=== PATIENT | male | born 1975 | race Caucasian/White ===

== ENCOUNTER 2020-03-14 14:38 | Observation (INO) | payer SELFPAY ==
[~2020-03-14] VITALS: Ht 177.8 cm; Wt 82.1 kg
[~2020-03-14 14:38] MED LIST: ALDACTONE25 MG PO; CLEOCIN HCL300 MG PO; COREG3.125 MG PO; FORTAMET1000 MG PO; GLIPIZIDE ER10 MG PO; HUMULIN 70100 UNIT/1 SQ; K DUR10 MEQ PO; LASIX40 MG PO; LISINOPRIL5 MG PO; MIRALAX17 GM PO; NORCO 5-325 TA1 EACH PO; TESSALON PERLE100 MG PO; THIAMINE PO; XANAX0.5 MG PO; XANAX1 MG PO
--- NOTE | 2020-03-14 14:48 | NUR ---
BILATERAL BLOOD PRESSURES: LEFT 151/100 RIGHT 157/102
[2020-03-14] MEDS ORDERED: ASPIRIN 81 MG CHEW TAB PO ONE (15:15)
--- OUTSIDE RECORDS SUMMARY | 2020-03-14 15:16 | XMS REPORT | Clinical Summary ---
Author Author [facility] ict Organization [facility] ict Address Unknown Phone Unavailable Care Team Providers Care Exhibitions Curator Name Role Phone PCP Unavailable Allergies Comments Active Allergy Reactions Severity Noted Date Lisinopril Cough 05/18/2013 Medications End Date Status Medication Sig Dispensed Refills Start Date Active citalopram (CELEXA) 20 mg Take 1 tablet 90 tablet 3 tabletIndications: by mouth 3 Depressive disorder, not daily. elsewhere classified Active blood glucose Check twice 1 Kit 3 meterIndications: daily. 9 Diabetic ketoacidosis without coma associated with type 2 diabetes mellitus Active blood glucose test Check twice 50 Each 3 stripsIndications: daily. 9 Diabetic ketoacidosis without coma associated with type 2 diabetes mellitus Active lancets 28 by 100 Each 3 gaugeIndications: MISCELLANEOUS 9 Diabetic ketoacidosis route 2 times without coma associated daily Check with type 2 diabetes twice daily. mellitus Active INSULIN SYRINGE 0.5mL Use to inject 1 Box 3 30GX5/16" (MONOJECT medication 2 9 ULTRACOMFORT INSULIN SYR times daily. 0.5ML 30GX5/16") Use a new syringe-needleIndications syringe each : Diabetic ketoacidosis time. without coma associated with type 2 diabetes mellitus Active atorvastatin (LIPITOR) 20 Take 1 tablet 30 tablet 2 mg tabletIndications: by mouth at 9 Type 2 diabetes mellitus bedtime with ketoacidosis without nightly. coma, with long-term current use of insulin, Coronary artery disease involving [place] coronary artery of [place] heart without angina pectoris Active losartan (COZAAR) 25 mg Take 1 tablet 180 tablet 3 tabletIndications: CHF by mouth 9 (congestive heart daily. failure) Active insulin NPH 100 unit/mL Inject 15 10 mL 3 injectionIndications: Units under 9 Type 2 diabetes mellitus the skin 2 with ketoacidosis without times daily coma, with long-term (before current use of insulin meals). Active insulin REGULAR 100 Inject 10 10 mL 3 unit/mL Units under 9 injectionIndications: the skin 3 Type 2 diabetes mellitus times daily with ketoacidosis without (before coma, with long-term meals). current use of insulin Active Problems Problem Noted Date Poorly controlled diabetes mellitus 07/14/2018 Chronic systolic heart failure 07/14/2018 Coronary artery disease involving [place] coronary art diana of [place] heart 07/14/2018 without angina pectoris Severe mitral regurgitation 04/27/2013 Overview: Functional MR SOB (shortness of breath) 04/26/2013 Hypotension 04/26/2013 CHF (congestive heart failure) 04/26/2013 DM (diabetes mellitus) 04/26/2013 Immunizations Name Administration Dates Next Due Influenza Vaccine 05/03/2013, 04/27/2013 (Def erred: Patient Refused) PPV 23 Pneumococcal 05/03/2013 Polysaccaride Pneumoccoccal 04/27/2013 (Deferred: Patie nt Refused) Tdap Tetanus, diphtheria, 06/21/2013 acellular pertussis Vaccine Social History Date Tobacco Use Types Packs/Day Years Used Quit: 03/13/2013 Former Smoker Cigarettes 1 25 Smokeless Tobacco: Never Used Comments: already quit Drinks/Week oz/Week Comments Alcohol Use No Sex Assigned at Date Recorded Not on file Industry Job Start Date Occupation Not on file Not on file Not on file Travel End Travel History Travel Start No recent travel history available. Last Filed Vital Signs Not on file Plan of Treatment Health Maintenance Due Date Last Done Comments DM Foot Exam (Yearly) 05/18/2014 05/18/2013 DM Retinal Exam (Yearly) 06/09/2014 06/09/2013, 06/09/2013 CORONARY ARTERY DISEASE 02/12/2020 02/11/2019, AGE 18 AND UP 07/15/2018, 07/17/2013, Additional history exists DM HGBA1C (Yearly) 02/12/2020 02/11/2019, 07/14/2018, 10/30/2013, Additional history exists IMM Influenza Seasonal 03/14/2020 05/03/2013 Oct to August (>/= 19 yrs) Results Not on fileafter 03/14/2019 Insurance Type Payer Benefit Subscriber ID Effective Phone Address Plan / Dates Group MEDICARE MEDICARE xxxxxxxxxxx 2015-P [phone] [address] resent [id number] [place] [address] [facility] SELF-PAY SELF-PAY xxxxxxxxx 2018- [phone] [address] [place] [address] Advance Directives Date Inactivated Comments Code Status Date Activated 02/12/2019 6:16 PM Full Code 02/11/2019 2:12 PM 07/15/2018 9:01 PM Full Code 07/15/2018 4:43 PM 07/25/2013 5:43 PM Full Code 07/24/2013 9:29 AM 05/04/2013 1:33 PM Full Code 05/01/2013 10:33 AM 05/01/2013 10:33 AM Full Code 04/26/2013 7:59 PM
--- OUTSIDE RECORDS SUMMARY | 2020-03-14 15:17 | XMS REPORT | Continuity of Care Document ---
Author Author [facility] Organization [facility] Address [address] [place] [id number] Phone Unavailable Care Team Providers Care Senior Accounts Payable Clerk Name Role Phone Unavailable Unavailable Problems Condition Name Condition Details Condition Category Status Onset Date Resolution Date Last Treatment Date Treating Clinician Comments Source Poorly controlled diabetes mellitus Poorly controlled diabetes m ellitus Disease Active 2018-07-14 00:00:00 [employer] Chronic systolic heart failure Chronic systolic heart failure Disea se Active 2018-07-14 00:00:00 [facility] Coronary artery disease involving [place] coronary artery of [place] heart without angina pectoris Coronary artery disease involving [place] coronary artery of [place] heart without angina pectoris Disease Active 2018-07-14 00:00:00 [facility] Severe mitral regurgitation Severe mitral regurgitation Disease Active 2013-04-27 00:00:00 Overview: Functional MR [facility] SOB (shortness of breath) SOB (shortness of breath) Disease Ac tive 2013-04-26 00:00:00 [facility] Hypotension Hypotension Disease Active 2013-04-26 00:00:00 [facility] CHF (congestive heart failure) CHF (congestive heart failure) Disea se Active 2013-04-26 00:00:00 [facility] DM (diabetes mellitus) DM (diabetes mellitus) Disease Active 2013-04-26 00:00:00 [facility] Allergies, Adverse Reactions, Alerts Allergy Name Allergy Type Status Severity Reaction(s) Onset Date Inacti ve Date Treating Clinician Comments Source Lisinopril Propensity to adverse reactions to drug Active Cough 2013-05-18 00:00:00 [facility] Social History Social Habit Start Date Stop Date Quantity Comments Source Sex Assigned At [facility] Cigarettes smoked current (pack per day) - Reported 00:00:00 2019-02-12 00:00:00 [facility] Cigarette pack-years 2019-02-12 00:00:00 2019-02-12 00:00:00 [facility] Alcohol intake 2019-02-12 00:00:00 2019-02-12 00:00:00 Current non-drinker of alcohol (finding) [facility] Tobacco Comment 2013-05-18 00:00:00 2013-05-18 00:00:00 already quit [facility] History of tobacco use 2013-03-13 00:00:00 Current smoker [facility] Smoking Status Start Date Stop Date Source Former smoker 2019-02-12 00:00:00 2019-02-12 00:00:00 [facility] ealt Medications Ordered Medication Name Filled Medication Name Start Date Stop Da te Current Medication? Ordering Clinician Indication Dosage Frequency Signature (SIG) Comments Components Source atorvastatin (LIPITOR) 20 mg tablet 2019-02-12 00:00:00 Yes Coronary artery disease involving [place] coronary artery of [place] heart without angina pectoris 20mg Take 1 tablet by mouth at bedtime nightly. [facility] losartan (COZAAR) 25 mg tablet 2019-02-12 00:00:00 Yes CHF (congestive heart failure) 25mg QD Take 1 tablet by mouth daily. [facility] insulin NPH 100 unit/mL injection 2019-02-12 00:00:00 Yes Type 2 diabetes mellitus with ketoacidosis without coma, with long-term current use of insulin 15U Q.5D Inject 15 Units under the skin 2 times daily (before m eals). [facility] insulin REGULAR 100 unit/mL injection 2019-02-12 00:00:00 Yes Type 2 diabetes mellitus with ketoacidosis without coma, with long-term current use of insulin 10U Q.[id number] Inject 10 Units u nder the skin 3 times daily (before meals). [facility] blood glucose meter 2018-07-15 00:00:00 Yes Diabetic ketoacidosis without coma associated with type 2 diabetes mellitus Check twice daily. [facility] blood glucose test strips 2018-07-15 00:00:00 Yes Diabetic ketoacidosis without coma associated with type 2 diabetes mellitus Check twice daily. [facility] lancets 28 gauge 2018-07-15 00:00:00 Yes Diabetic ketoacidosis without coma associated with type 2 diabetes mellitus Q.5D by MISCELLANEOUS route 2 times daily Check twice daily. [facility] INSULIN SYRINGE 0.5mL 30GX5/16" (MONOJEC T ULTRACOMFORT INSULIN SYR 0.5ML 30GX5/16") syringe-needle 2018-07-15 00:00:00 Yes Diabetic ketoacidosis without coma associated with type 2 diabetes mellitus Q.5D Use to inject medication 2 times daily. Use a new syringe each time. [facility] citalopram (CELEXA) 20 mg tablet 2013-05-18 00:00:00 Yes Depressive disorder, not elsewhere classified 20mg QD Take 1 tablet by mouth daily. [facility] Immunizations Ordered Immunization Name Filled Immunization Name Date Status Comments Source Tdap Tetanus, diphtheria, acellular pertussis Vaccine 2013-06-21 00:00:00 Completed [facility] PPV 23 Pneumococcal Polysaccaride 2013-05-03 00:00:00 Comp leted [facility] Influenza Vaccine 2013-05-03 00:00:00 Completed [facility] Procedures This patient has no known procedures. Plan of Care Planned Activity Planned Date Details Comments Source Future Scheduled Test 2020-03-14 00:00:00 IMM Influenza Seas onal Mar to August (>/= 19 yrs) [code = IMM Influenza Seasonal Mar to August (>/= 19 yrs)] [facility] Scheduled Test 2020-02-12 00:00:00 CORONARY ARTERY DI SEASE AGE 18 AND UP [code = CORONARY ARTERY DISEASE AGE 18 AND UP] [facility] Scheduled Test 2020-02-12 00:00:00 Hemoglobin A1c felix surement (procedure) [code = 11966224] [facility] Scheduled Test 2014-06-09 00:00:00 DM Retinal Exam (Y early) [code = DM Retinal Exam (Yearly)] [facility] Scheduled Test 2014-05-18 00:00:00 DM Foot Exam (Year ly) [code = DM Foot Exam (Yearly)] [facility] Encounters Start Date/Time End Date/Time Encounter Type Admission Type [facility] Care Department Encounter ID Source 2019-02-11 16:29:46 Inpatient [facility] [id number] [facility] 2019-02-11 00:00:00 Inpatient [facility] [id number] [facility] 2019-02-11 00:00:00 Inpatient [facility] [id number] [facility] 2018-07-15 14:55:23 Inpatient [facility] [id number] [facility] 2018-07-14 10:29:17 Inpatient [facility] [id number] [facility] 2019-03-07 00:00:2019-03-07 00:00:00 Outpatient [facility] [id number] [facility] 2019-02-11 08:16:46 2019-02-11 08:16:46 Inpatient [facility] [id number] [facility] 2018-08-01 00:00:00 2018-08-01 00:00:00 Outpatient [facility] [id number] [facility] 2018-07-14 08:31:12 2018-07-14 08:31:12 Inpatient [facility] [id number] [facility] Results Test Description Test Time Test Comments Results Result Comments Source XR Abdomen KUB 1 View 2018-01-17 14:26:27 Patien t: WOODROW GRANADOS Date/Time01/17/2018 14:20 CDTReason for ExamAbdominal painReportXR Abdomen KUB 1 ViewCLINICAL INFORMATION: Abdominal painCOMPARISONS: None available.FINDINGS:A single AP view of the abdomen was submitted. A nonspecific bowel gas pattern is noted. The small bowel loops are relatively airless. There is a moderate amount of stool in the left hemicolon and rectum. The bones are unremarkable.IMPRESSION:No acute abdominal finding. Moderate stool burden.Location: R16 Final Dictated by: MD Harman Adam FDictated DT/TM: 01/17/2018 2:25 pmSigned by: MD Harman Adam FSigned (Electronic Signature): 01/17/2018 2:26 pm XR Chest 1 View Frontal 2018-01-17 13:03:12 Corrie ent: WOODROW GRANADOS Date/Time01/17/2018 12:59 CDTReason for ExamCHF (Congestive Heart Failure), knownReportLocation code: [id number]: AP VIEW CHEST X-RAYHISTORY: CHF (Congestive Heart Failure), knownCOMPARISON: NoneCOMMENT: AP view provided. No acute infiltrate or effusion is seen. Cardiomediastinal silhouette is within normal limits. No acute bony abnormalities.IMPRESSION:No radiographic evidence for acute disease. Final Dictated by: MD Reyes Eniola FDictated DT/TM: 01/17/2018 1:02 pmSigned by: MD Reyes Eniola FSigned (Electronic Signature): 01/17/2018 1:03 pm
[2020-03-14 15:19] LABS: BASOPHILS % 0.6 % (0.0-1.0); EOSINOPHILS # (AUTO) 0.4 (0.0-0.4); EOSINOPHILS % 5.6 % (0.0-6.0); HEMATOCRIT 44.2 % (38.2-49.6); HEMOGLOBIN 15.4 g/dL (14.0-18.0); LYMPHOCYTES % 29.5 % (18.0-39.1); MEAN CORPUSCULAR HEMOGLOBIN 31.6 pg (28-32); MEAN CORPUSCULAR HGB CONC 34.8 g/dL (31-35); MEAN CORPUSCULAR VOLUME 90.6 fL (81-99); MONOCYTES # (AUTO) 0.4 (0.2-0.8); MONOCYTES % 5.2 % (4.4-11.3); NEUTROPHILS # (AUTO) 4.1 (2.1-6.9); NEUTROPHILS % 58.8 % (38.7-80.0); PLATELET COUNT 200 x10e3/uL (140-360); RED BLOOD COUNT 4.88 x10e6/uL (4.3-5.7); RED CELL DISTRIBUTION WIDTH 12.3 % (11.7-14.4)
[2020-03-14 15:30] LABS: INR 0.82; PROTHROMBIN TIME 11.7 seconds (11.9-14.5)
[2020-03-14 15:31] LABS: CLARITY,URINE CLEAR (CLEAR); COLOR,URINE YELLOW (YELLOW); PARTIAL THROMBOPLASTIN TIME 22.5 seconds (23.8-35.5)
[2020-03-14 15:32] LABS: KETONES,URINE 1+ (NEGATIVE); LEUKOCYTE ESTERASE ,URINE NEGATIVE (NEGATIVE); NITRITE,URINE NEGATIVE (NEGATIVE); PROTEIN,URINE DIPSTICK 2+ (NEGATIVE)
[2020-03-14 15:33] LABS: BILIRUBIN,URINE SMALL (NEGATIVE); URINE UROBILINOGEN 0.2 mg/dL (0.2 - 1)
--- NOTE | 2020-03-14 15:34 | Diagnostic Imaging Report ---
Examination: Single AP view of the chest. COMPARISON: None. INDICATION: Chest pain, left arm pain IMPRESSION: 1. Lines and Tubes: None 2. Lungs are grossly clear. No consolidation or effusion. 3. Cardiomediastinal silhouette is normal. Pulmonary vasculature is normal. 4. No acute bony abnormalities. Signed by: Dr. Mauri Baer M.D. on 03/14/2020 3:31 PM
[2020-03-14 15:37] LABS: ALANINE AMINOTRANSFERASE 17 IU/L (0-55); ALBUMIN 4.3 g/dL (3.5-5.0); ALBUMIN/GLOBULIN RATIO 1.3 (0.8-2.0); ALKALINE PHOSPHATASE 72 IU/L (40-150); BLOOD UREA NITROGEN 14 mg/dL (7-26); BUN/CREATININE RATIO 12 (6-25); CALCIUM 9.2 mg/dL (8.4-10.2); CARBON DIOXIDE 24 mmol/L (22-29); CHLORIDE 99 mmol/L (98-107); CREATINE KINASE 58 IU/L (30-200); CREATININE, SERUM 1.15 mg/dL (0.72-1.25); EST GLOMERULAR FILTRATION RATE > 60 ML/MIN (60-); GLUCOSE 257 mg/dL (74-118); SODIUM 136 mmol/L (136-145)
[2020-03-14 15:40] LABS: BACTERIA,URINE RARE /HPF; EPITHELIAL CELLS,URINE FEW /LPF; WBC,URINE (MAN) 21-50 /HPF (0-5)
[2020-03-14] MEDS ORDERED: METOPROLOL TARTRATE 25 MG TAB PO ONE (15:45)
[2020-03-14] MEDS ORDERED: MORPHINE SULFATE 2 MG/ML SYR 1ML IV PRN (17:00)
[2020-03-14] MEDS ORDERED: CEFTRIAXONE SOD 1 GM/NS 50 ML 50 ML IV SCH (17:00)
[2020-03-14] MEDS ORDERED: NITROGLYCERIN 0.4 MG SUBL SL PRN (17:00)
[2020-03-14] MEDS ORDERED: ONDANSETRON HCL INJ 2MG/ML 2ML 2 MG/ML VIAL IV PRN (17:00)
--- OUTSIDE RECORDS SUMMARY | 2020-03-14 17:11 | XMS REPORT | Continuity of Care Document ---
Author Author [facility] t Organization [facility] Address [address] [place] [address] Phone Unavailable Care Team Providers Care Patch Worker Name Role Phone Julio Céasr POE Attphys Unavailable Problems Condition Name Condition Details Condition Category Status Onset Date Resolution Date Last Treatment Date Treating Clinician Comments Source Poorly controlled diabetes mellitus Poorly controlled diabetes m ellitus Disease Active 2018-07-14 00:00:00 [facility] Chronic systolic heart failure Chronic systolic heart failure Disea se Active 2018-07-14 00:00:00 [facility] Coronary artery disease involving [place] coronary artery of [place] heart without angina pectoris Coronary artery disease involving [place] coronary artery of [place] heart without angina pectoris Disease Active 2018-07-14 00:00:00 [facility] Severe mitral regurgitation Severe mitral regurgitation Disease Active 2013-04-27 00:00:00 Overview: Functional MR [facility] SOB (shortness of breath) SOB (shortness of breath) Disease Ac tive 2013-04-26 00:00:00 [facility] Hypotension Hypotension Disease Active 2013-04-26 00:00:00 [facility] CHF (congestive heart failure) CHF (congestive heart failure) Disea se Active 2013-04-26 00:00:00 [facility] DM (diabetes mellitus) DM (diabetes mellitus) Disease Active 2013-04-26 00:00:00 [facility] Allergies, Adverse Reactions, Alerts Allergy Name Allergy Type Status Severity Reaction(s) Onset Date Inacti ve Date Treating Clinician Comments Source Lisinopril Propensity to adverse reactions to drug Active Cough 2013-05-18 00:00:00 [facility] Social History Social Habit Start Date Stop Date Quantity Comments Source Sex Assigned At [facility] Cigarettes smoked current (pack per day) - Reported 00:00:00 2019-02-12 00:00:00 [facility] Cigarette pack-years 2019-02-12 00:00:00 2019-02-12 00:00:00 [facility] Alcohol intake 2019-02-12 00:00:00 2019-02-12 00:00:00 Current non-drinker of alcohol (finding) [facility] Tobacco Comment 2013-05-18 00:00:00 2013-05-18 00:00:00 already quit [facility] History of tobacco use 2013-03-13 00:00:00 Current smoker [facility] Smoking Status Start Date Stop Date Source Former smoker 2019-02-12 00:00:00 2019-02-12 00:00:00 [facility] ealt Medications Ordered Medication Name Filled Medication Name Start Date Stop Da te Current Medication? Ordering Clinician Indication Dosage Frequency Signature (SIG) Comments Components Source atorvastatin (LIPITOR) 20 mg tablet 2019-02-12 00:00:00 Yes Coronary artery disease involving [place] coronary artery of [place] heart without angina pectoris 20mg Take 1 tablet by mouth at bedtime nightly. [facility] losartan (COZAAR) 25 mg tablet 2019-02-12 00:00:00 Yes CHF (congestive heart failure) 25mg QD Take 1 tablet by mouth daily. [facility] insulin NPH 100 unit/mL injection 2019-02-12 00:00:00 Yes Type 2 diabetes mellitus with ketoacidosis without coma, with long-term current use of insulin 15U Q.5D Inject 15 Units under the skin 2 times daily (before m eals). [facility] insulin REGULAR 100 unit/mL injection 2019-02-12 00:00:00 Yes Type 2 diabetes mellitus with ketoacidosis without coma, with long-term current use of insulin 10U Q.[id number] Inject 10 Units u nder the skin 3 times daily (before meals). [facility] blood glucose meter 2018-07-15 00:00:00 Yes Diabetic ketoacidosis without coma associated with type 2 diabetes mellitus Check twice daily. [facility] blood glucose test strips 2018-07-15 00:00:00 Yes Diabetic ketoacidosis without coma associated with type 2 diabetes mellitus Check twice daily. [facility] lancets 28 gauge 2018-07-15 00:00:00 Yes Diabetic ketoacidosis without coma associated with type 2 diabetes mellitus Q.5D by MISCELLANEOUS route 2 times daily Check twice daily. [facility] INSULIN SYRINGE 0.5mL 30GX5/16" (MONOJEC T ULTRACOMFORT INSULIN SYR 0.5ML 30GX5/16") syringe-needle 2018-07-15 00:00:00 Yes Diabetic ketoacidosis without coma associated with type 2 diabetes mellitus Q.5D Use to inject medication 2 times daily. Use a new syringe each time. [facility] citalopram (CELEXA) 20 mg tablet 2013-05-18 00:00:00 Yes Depressive disorder, not elsewhere classified 20mg QD Take 1 tablet by mouth daily. [facility] Immunizations Ordered Immunization Name Filled Immunization Name Date Status Comments Source Tdap Tetanus, diphtheria, acellular pertussis Vaccine 2013-06-21 00:00:00 Completed [facility] PPV 23 Pneumococcal Polysaccaride 2013-05-03 00:00:00 Comp leted [facility] Influenza Vaccine 2013-05-03 00:00:00 Completed [facility] Procedures This patient has no known procedures. Plan of Care Planned Activity Planned Date Details Comments Source Future Scheduled Test 2020-03-14 00:00:00 IMM Influenza Seas onal Mar to August (>/= 19 yrs) [code = IMM Influenza Seasonal Mar to August (>/= 19 yrs)] [facility] Scheduled Test 2020-02-12 00:00:00 CORONARY ARTERY DI SEASE AGE 18 AND UP [code = CORONARY ARTERY DISEASE AGE 18 AND UP] [facility] Scheduled Test 2020-02-12 00:00:00 Hemoglobin A1c felix surement (procedure) [code = 46034018] [facility] Scheduled Test 2014-06-09 00:00:00 DM Retinal Exam (Y early) [code = DM Retinal Exam (Yearly)] [facility] Scheduled Test 2014-05-18 00:00:00 DM Foot Exam (Year ly) [code = DM Foot Exam (Yearly)] [facility] Encounters Start Date/Time End Date/Time Encounter Type Admission Type Att[facility] Care Department Encounter ID Source 2019-02-11 16:29:46 Inpatient [facility] [id number] [facility] 2019-02-11 00:00:00 Inpatient [facility] [id number] [facility] 2019-02-11 00:00:00 Inpatient [facility] [id number] [facility] 2018-07-15 14:55:23 Inpatient [facility] [id number] [facility] 2018-07-14 10:29:17 Inpatient [facility] [id number] [facility] 2019-03-07 00:00:00 2019-03-07 00:00:00 Outpatient [facility] [id number] [facility] 2019-02-11 08:16:46 2019-02-11 08:16:46 Inpatient [facility] [id number] [facility] 2018-08-01 00:00:00 2018-08-01 00:00:00 Outpatient [facility] [id number] [facility] 2018-07-14 08:31:12 2018-07-14 08:31:12 Inpatient [facility] [id number] [facility] Results Test Description Test Time Test Comments Results Result Comments Source CHEST SINGLE (PORTABLE) 2020-03-14 15:31:00 [place] [address] Patient Name: WOODROW GRANADOS MR #: [id number] : 1975 Age/Sex: 45/M Req #: [id number] Adm Physician: Ordered by: MAIRA POE MD Report #: [id number] Location: ER Room/Bed: Procedure: [id number] DX/CHEST SINGLE (PORTABLE) Exam Date: 03/14/20 Exam Time: 1455 REPORT STATUS: Signed Examination: Single AP view of the chest. COMPARISON: None. INDICATION: Chest pain, left arm pain IMPRESSION: 1. Lines and Tubes: None 2. Lungs are grossly clear. No consolidation or effusion. 3. Cardiomediastinal silhouette is normal. Pulmonary vasculature is normal. 4. No acute bony abnormalities. Signed by: Dr. Dereje Baer M.D. on 03/14/2020 3:31 PM Dictated By: DEREJE BAER MD 1531 Transcribed By: SUGAR on 03/14/20 1531 COPY TO: MAIRA POE MD XR Abdomen KUB 1 View 2018-01-17 14:26:27 [...] for ExamCHF (Congestive Heart Failure), knownReportLocation code: [id number]: AP VIEW CHEST X-RAYHISTORY: CHF (Congestive Heart Failure), knownCOMPARISON: NoneCOMMENT: AP view provided. No acute infiltrate or effusion is seen. Cardiomediastinal silhouette is within normal limits. No acute bony abnormalities.IMPRESSION:No radiographic evidence for acute disease. Final Dictated by: MD Reyes Eniola FDictated DT/TM: 01/17/2018 1:02 pmSigned by: MD Reyes Eniola FSigned (Electronic Signature): 01/17/2018 1:03 pm
--- OUTSIDE RECORDS SUMMARY | 2020-03-14 17:11 | XMS REPORT | Clinical Summary ---
Author Author [facility] ict Organization [facility] ict Address Unknown Phone Unavailable Care Team Providers Care Brass Pickler Name Role Phone PCP Unavailable Allergies Comments [...] use of insulin, Coronary artery disease involving [place] coronary artery of [place] heart without angina pectoris Active losartan (COZAAR) [...] heart failure 07/14/2018 Coronary artery disease involving [place] coronary art diana of [place] heart 07/14/2018 without angina pectoris Severe mitral [...] / Dates Group MEDICARE MEDICARE xxxxxxxxxxx 2015-P [phone] [place] [id number] [place] [address] [facility] SELF-PAY SELF-PAY xxxxxxxxx 2018- [phone] [address] [place] [address] Advance Directives Date Inactivated Comments Code Status Date Activated 02/12/2019 6:16 PM Full Code 02/11/2019 2:12 PM 07/15/2018 9:01 PM Full Code 07/15/2018 4:43 PM 07/25/2013 5:43 PM Full Code 07/24/2013 9:29 AM 05/04/2013 1:33 PM Full Code 05/01/2013 10:33 AM 05/01/2013 10:33 AM Full Code 04/26/2013 7:59 PM
--- NOTE | 2020-03-14 18:48 | Emergency Department Note ---
History of Present Illnes History of Present Illness Chief Complaint: Chest Pain History of Present Illness This is a 45 year old male PATIENT IN FROM HOME WITH COMPLAINTS OF HIGH BLOOD PRESSURE, LEFT ARM PAIN AND CHEST PAIN X 2 HOURS. PATIENT RATES PAIN 3/10 AT THIS TIME, AND STATES THAT IT COMES AND GOES. PATIENT ALERT AND ORIENTED, RESP EVEN AND NONLABORED, APPEARS IN NO DISTRESS, AMBULATORY WITHOUT ASSISTANCE. + ASSOC SOB, DIAPHORESIS Historian: Patient Arrival Mode: Car Shipping Order Clerk Required: No Onset (how long ago): hour(s) Location: SS CHEST Quality: PRESSURE Radiation: Reports extremity (LEFT ARM) Severity: moderate Onset quality: gradual Timing of current episode: intermittent Progression: waxing and waning Chronicity: new Context: Denies recent illness Relieving factors: none Exacerbating factors: movement Associated symptoms: Reports chest pain, Reports diaphoresis, Reports shortness of breath Past Medical/Family History Physician Review I have reviewed the patient's past medical and family history. Any updates have been documented here. Past Medical History Recent Fever: No Clinical Suspicion of Infectio: No New/Unexplained Change in Ment: No Past Medical History: Diabetes, CHF, Hyperlipedemia Other Medical History: NOT ON ANY MEDS EXCEPT INSULIN Other Surgery: KNEE Social History Smoking Cessation: Current every day smoker Counseling Performed: Yes Alcohol Use: Social Any Illegal Drug Use: No TB Exposure/Symptoms: No Physically hurt or threatened: No Family History Family history of heart diseas: No Other Last Tetanus: UNKNOWN Any Pre-Existing Lines (PICC,: No Review of Systems Review of Systems Constitutional: Reports no symptoms EENTM: Reports no symptoms Cardiovascular: Reports as per HPI Respiratory: Reports no symptoms Gastrointestinal: Reports no symptoms Genitourinary: Reports no symptoms Musculoskeletal: Reports no symptoms Integumentary: Reports no symptoms Neurological: Reports no symptoms Psychological: Reports no symptoms Endocrine: Reports no symptoms Hematological/Lymphatic: Reports no symptoms Physical Exam Related Data Allergies: Coded Allergies: No Known Allergies (Unverified , 03/25/13) Triage Vital Signs Vital Signs Date Time Temp Pulse Resp B/P (MAP) Pulse Ox O2 Delivery O2 Flow Rate FiO2 03/14/20 14:44 97.9 110 18 157/102 100 Room Air Vital signs reviewed: Yes Physical Exam CONSTITUTIONAL Constitutional: Present well-developed, Present well-nourished HENT HENT: Present normocephalic, Present atraumatic, Present oropharynx clear/moist, Present nose normal HENT L/R: Present left ext ear normal, Present right ext ear normal EYES Eyes: Reports PERRL, Reports conjunctivae normal NECK Neck: Present ROM normal PULMONARY Pulmonary: Present effort normal, Present breath sounds normal CARDIOVASCULAR Cardiovascular: Present regular rhythm, Present heart sounds normal, Present capillary refill normal, Present normal rate GASTROINTESTINAL Abdominal: Present soft, Present nontender, Present bowel sounds normal GENITOURINARY Genitourinary: Present exam deferred SKIN Skin: Present warm, Present dry MUSCULOSKELETAL Musculoskeletal: Present ROM normal, Present edema (2+ LE EDEMA BILAT) NEUROLOGICAL Neurological: Present alert, Present oriented x 3, Present no gross motor or sensory deficits PSYCHOLOGICAL Psychological: Present mood/affect normal, Present judgement normal Results Laboratory Result Diagram: 03/14/20 1500 03/14/20 1500 Laboratory Laboratory Tests Test 03/14/20 15:00 White Blood Count 6.92 x10e3/uL (4.8-10.8) Red Blood Count 4.88 x10e6/uL (4.3-5.7) Hemoglobin 15.4 g/dL (14.0-18.0) Hematocrit 44.2 % (38.2-49.6) Mean Corpuscular Volume 90.6 fL (81-99) Mean Corpuscular Hemoglobin 31.6 pg (28-32) Mean Corpuscular Hemoglobin Concent 34.8 g/dL (31-35) Red Cell Distribution Width 12.3 % (11.7-14.4) Platelet Count 200 x10e3/uL (140-360) Neutrophils (%) (Auto) 58.8 % (38.7-80.0) Lymphocytes (%) (Auto) 29.5 % (18.0-39.1) Monocytes (%) (Auto) 5.2 % (4.4-11.3) Eosinophils (%) (Auto) 5.6 % (0.0-6.0) Basophils (%) (Auto) 0.6 % (0.0-1.0) Neutrophils # (Auto) 4.1 (2.1-6.9) Lymphocytes # (Auto) 2.0 (1.0-3.2) Monocytes # (Auto) 0.4 (0.2-0.8) Eosinophils # (Auto) 0.4 (0.0-0.4) Basophils # (Auto) 0.0 (0.0-0.1) Absolute Immature Granulocyte (auto 0.02 x10e3/uL (0-0.1) Prothrombin Time 11.7 seconds (11.9-14.5) Prothromb Time International Ratio 0.82 Activated Partial Thromboplast Time 22.5 seconds (23.8-35.5) Urine Color Yellow (YELLOW) Urine Clarity Clear (CLEAR) Urine pH 5.5 (5 - 7) Urine Specific [place] 1.025 (1.010-1.025) Urine Protein 2+ (NEGATIVE) Urine Glucose (UA) 2+ (NEGATIVE) Urine Ketones 1+ (NEGATIVE) Urine Blood Large (NEGATIVE) Urine Nitrite Negative (NEGATIVE) Urine Bilirubin Small (NEGATIVE) Urine Urobilinogen 0.2 mg/dL (0.2 - 1) Urine Leukocyte Esterase Negative (NEGATIVE) Urine RBC 11-20 /HPF (0-5) Urine WBC 21-50 /HPF (0-5) Urine Epithelial Cells Few /LPF (NONE) Urine Bacteria Rare /HPF (NONE) Sodium Level 136 mmol/L (136-145) Potassium Level 4.0 mmol/L (3.5-5.1) Chloride Level 99 mmol/L (98-107) Carbon Dioxide Level 24 mmol/L (22-29) Anion Gap 17.0 mmol/L (8-16) Blood Urea Nitrogen 14 mg/dL (7-26) Creatinine 1.15 mg/dL (0.72-1.25) Estimat Glomerular Filtration Rate > 60 ML/MIN (60-) BUN/Creatinine Ratio 12 (6-25) Glucose Level 257 mg/dL (74-118) Calcium Level 9.2 mg/dL (8.4-10.2) Total Bilirubin 0.6 mg/dL (0.2-1.2) Aspartate Amino Transf (AST/SGOT) 23 IU/L (5-34) Alanine Aminotransferase (ALT/SGPT) 17 IU/L (0-55) Alkaline Phosphatase 72 IU/L (40-150) Creatine Kinase 58 IU/L (30-200) Creatine Kinase MB 1.10 ng/mL (0-5.0) Troponin I 0.004 ng/mL (0-0.300) B-Type Natriuretic Peptide 157.5 pg/mL (0-100) Total Protein 7.5 g/dL (6.5-8.1) Albumin 4.3 g/dL (3.5-5.0) Globulin 3.2 g/dL (2.3-3.5) Albumin/Globulin Ratio 1.3 (0.8-2.0) Lab results reviewed: Yes Imaging Imaging results reviewed: Yes Procedures 12 Lead ECG Interpretation ECG Interpretation : ECG: ECG 1 Shipping Order Clerk: Interpreted by ED physician Date: Mar 14, 2020 Time: 14:48 Rhythm: sinus tachycardia Rate: tachycardia BPM: 107 QRS axis: normal ST segment flattening: V5 (1 MM), V6 T wave inversion: V5, V6 Clinical Impression: abnormal ECG Assessment & Plan Medical Decision Making MDM CBC, CHEM, CARDIACS, BNP, CXR, - EVAL FOR STEMI/NSTEMI, CHF, RENAL INSUFF, ELECTROLYTE ABNL Reassessment Reassessment ADMIT TO ON-CALL DR SU - MEHDI R/O Assessment & Plan Final Impression: (1) Chest pain Depart Disposition: ADMITTED Last Vital Signs Date Time Temp Pulse Resp B/P (MAP) Pulse Ox O2 Delivery O2 Flow Rate FiO2 03/14/20 18:22 82 18 133/87 99 Room Air 03/14/20 14:44 97.9 Home Meds Reported Medications Hum Insulin Nph/Reg Insulin Hm (HUMULIN 70-30 VIAL) 100 Unit/1 Ml Vial, 20 UNITS SQ HS 04/13/13 Hum Insulin Nph/Reg Insulin Hm (HUMULIN 70-30 VIAL) 100 Unit/1 Ml Vial, 25 UNIT SQ QAM 04/13/13 Discontinued Reported Medications Benzonatate (TESSALON PERLE) 100 Mg Capsule, 100 MG PO TID PRN 04/13/13 Hydrocodone Bit/Acetaminophen (NORCO 5-325 TABLET) 1 Each Tablet, 1 TAB PO Q6 PRN 04/13/13 Polyethylene Glycol 3350 (MIRALAX) 17 Gm Powd.pack, 17 G PO DAILY 04/13/13 Furosemide (LASIX) 40 Mg Tablet, 40 MG PO TID 04/13/13 Alprazolam (XANAX) 0.5 Mg Tablet, 0.5 MG PO Q4 PRN 04/13/13 Alprazolam* (XANAX*) 1 Mg Tablet, 1 MG PO 04/13/13 Clindamycin Hcl (CLEOCIN HCL) 300 Mg Capsule, 300 MG PO TID 04/13/13 Spironolactone (ALDACTONE) 25 Mg Tablet, 25 MG PO BID 04/13/13 Potassium Chloride* (K DUR*) 10 Meq Tabcr, 20 MEQ PO DAILY 04/13/13 Carvedilol (COREG) 3.125 Mg Tab, 3.125 MG PO BID 04/13/13 Lisinopril (LISINOPRIL) 5 Mg Tablet, 5 MG PO HS 04/13/13 [Thiamine B1] No Conflict Check, 50 MG PO DAILY 04/13/13 Glipizide (GLIPIZIDE ER) 10 Mg Tab.er.24, 10 MG PO BID 03/25/13 Metformin Hcl (FORTAMET) 1,000 Mg Tab.er.24, 1000 MG PO BID 03/25/13 Medications in the ED Aspirin 81 mg PRN ONCE PO Last administered on 03/14/20at 16:58; Admin Dose 81 MG; Start 03/14/20 at 15:15; Stop 03/14/20 at 15:16; Status DC Metoprolol Tartrate 25 mg ONCE ONCE PO Last administered on 03/14/20at 16:58; Admin Dose 25 MG; Start 03/14/20 at 15:45; Stop 03/14/20 at 15:49; Status DC MAIRA POE MD Mar 14, 2020 18:48
[2020-03-14 20:10] VITALS: BP 143/93
--- NOTE | 2020-03-14 20:17 | NUR ---
PT STATES THAT HE FEELS BETTER AND WAS NOT EXPECTING TO BE ADMITTED. HE WANTS TO GO HOME, BECAUSE HE HAS TO GO TO WORK TOMORROW. DR SU NOTIFIED AT THIS TIME, NO NEW ORDERS RECEIVED.
[2020-03-14] MEDS ORDERED: POLYETHYLENE GLYCOL 3350 17 GM PACK PO PRN (20:30)
[2020-03-14] MEDS ORDERED: ACETAMINOPHEN 325 MG TAB PO PRN (20:30)
[2020-03-14] MEDS ORDERED: TEMAZEPAM 7.5 MG CAP PO PRN (20:30)
[2020-03-14] MEDS ORDERED: HYDRALAZINE HCL 20 MG/ML VIAL IV PRN (20:30)
[2020-03-14] MEDS ORDERED: FAMOTIDINE 20 MG/2 ML VIAL IV SCH (21:00)
[2020-03-15] MEDS ORDERED: ASPIRIN 81 MG ENTERIC COATED PO SCH (09:00)
[2020-03-15] MEDS ORDERED: DOCUSATE SODIUM 100 MG CAP PO SCH (09:00)
== END 2020-03-14 20:30 | disposition left against medical advice (07) ==
LOC: ER 15:14 → ERHOLD 16:52
PROVIDERS: ADMIT Internal Medicine; ATTEND Internal Medicine
DX: R07.9 Chest pain, unspecified (principal); E11.9 Type 2 diabetes mellitus without complications; I50.9 Heart failure, unspecified; E78.5 Hyperlipidemia, unspecified; F17.210 Nicotine dependence, cigarettes, uncomplicated; Z11.59 Encounter for screening for other viral diseases; Z79.4 Long term (current) use of insulin
CPT/HCPCS: 36415; 71045; 80053; 81001; 82550; 82553; 83880; 84484; 85025; 85610; 85730; 93005; 99284; G0378; J0696; U0002

== ENCOUNTER 2022-10-28 10:35 | Emergency (ER) | payer OTHER ==
[~2022-10-28] VITALS: Ht 177.8 cm; Wt 77.6 kg
[~2022-10-28 10:35] MED LIST changes: -INSULIN REGULAR, HUMAN 100 UNIT/1 ML ONE; -LACTATED RINGER'S 1,000 ML ONE; -LIDOCAINE HCL 2% LOCAL INJ 5 ML SDV VIAL INJ ONE; -PHENYLEPHRINE HCL 1% 10 MG/ML VIAL ONE; -PROPOFOL IV EMULSION 10 MG/ML 20 ML VIAL ONE; -PROPOFOL IV EMULSION 10 MG/ML 50 ML VIAL IV ONE
[2022-10-28 10:45] VITALS: O2SAT 99
[2022-10-28] MEDS ORDERED: SODIUM CHLORIDE 0.9% 1000ML 1,000 ML IV STA (11:12)
[2022-10-28] MEDS ORDERED: SODIUM CHLORIDE 0.9% 1000ML 1,000 ML IV ONE (11:15)
[2022-10-28] MEDS ORDERED: INSULIN REGULAR, HUMAN 100 UNIT/1 ML IV ONE (11:15)
[2022-10-28 11:22] LABS: BASOPHILS % 0.6 % (0.0-1.0); EOSINOPHILS % 0.3 % (0.0-6.0); HEMATOCRIT 43.2 % (38.2-49.6); LYMPHOCYTES # (AUTO) 1.2 (1.0-3.2); LYMPHOCYTES % 19.1 % (18.0-39.1); MEAN CORPUSCULAR HEMOGLOBIN 31.6 pg (28-32); MEAN CORPUSCULAR HGB CONC 34.7 g/dL (31-35); MEAN CORPUSCULAR VOLUME 90.9 fL (81-99); MONOCYTES # (AUTO) 0.2 (0.2-0.8); MONOCYTES % 2.6 % (4.4-11.3); NEUTROPHILS % 77.1 % (38.7-80.0); PLATELET COUNT 176 x10e3/uL (140-360); RED BLOOD COUNT 4.75 x10e6/uL (4.3-5.7); RED CELL DISTRIBUTION WIDTH 11.6 % (11.7-14.4)
[2022-10-28 11:29] LABS: ABG PH 7.35 (7.35-7.45)
[2022-10-28 11:30] LABS: COLOR,URINE YELLOW (YELLOW)
[2022-10-28 11:30] LABS: ABG HCO3 20 mmol/L (22-26); ABG PCO2 36 mmHg (35-45); ABG PO2 95 mmHg (80-105); ABG TCO2 21
[2022-10-28 11:32] LABS: CLARITY,URINE CLEAR (CLEAR); KETONES,URINE >=160 (NEGATIVE); LEUKOCYTE ESTERASE ,URINE NEGATIVE (NEGATIVE); NITRITE,URINE NEGATIVE (NEGATIVE); PROTEIN,URINE DIPSTICK NEGATIVE (NEGATIVE); URINE UROBILINOGEN 0.2 mg/dL (0.2 - 1)
[2022-10-28 11:50] LABS: BACTERIA,URINE RARE /HPF; RBC,URINE 0-5 /HPF (0-5); WBC,URINE (MAN) 0-5 /HPF (0-5)
[2022-10-28 11:52] LABS: ALBUMIN 4.3 g/dL (3.5-5.0); ALBUMIN/GLOBULIN RATIO 1.2 (0.8-2.0); ANION GAP 16.5 mmol/L (8-16); CALCIUM 9.7 mg/dL (8.4-10.2); CREATININE, SERUM 1.58 mg/dL (0.72-1.25); MAGNESIUM 2.5 MG/DL (1.3-2.1); POTASSIUM 4.5 mmol/L (3.5-5.1)
== END 2022-10-28 14:33 | disposition home or self-care (01) ==
LOC: ER 10:47
DX: R19.7 Diarrhea, unspecified (principal); E71.32 Disorders of ketone metabolism; R94.31 Abnormal electrocardiogram [ECG] [EKG]; E86.0 Dehydration; E11.65 Type 2 diabetes mellitus with hyperglycemia
CPT/HCPCS: 36415; 36600; 71045; 80053; 81001; 82805; 82948; 83735; 84484; 85025; 87086; 93005; 99284; J7030

== ENCOUNTER → 2022-10-28 | Day surgery (SDC) | payer BC, MEDICARE, OTHER ==
[2022-10-22 08:27] LABS: BASOPHILS # (AUTO) 0.1 (0.0-0.1); BASOPHILS % 1.3 % (0.0-1.0); EOSINOPHILS # (AUTO) 0.7 (0.0-0.4); EOSINOPHILS % 10.2 % (0.0-6.0); HEMATOCRIT 40.9 % (38.2-49.6); HEMOGLOBIN 14.2 g/dL (14.0-18.0); LYMPHOCYTES # (AUTO) 3.1 (1.0-3.2); LYMPHOCYTES % 43.3 % (18.0-39.1); MEAN CORPUSCULAR HEMOGLOBIN 31.3 pg (28-32); MEAN CORPUSCULAR HGB CONC 34.7 g/dL (31-35); MEAN CORPUSCULAR VOLUME 90.1 fL (81-99); MONOCYTES # (AUTO) 0.5 (0.2-0.8); MONOCYTES % 7.4 % (4.4-11.3); NEUTROPHILS # (AUTO) 2.7 (2.1-6.9); NEUTROPHILS % 37.5 % (38.7-80.0); PLATELET COUNT 161 x10e3/uL (140-360); RED BLOOD COUNT 4.54 x10e6/uL (4.3-5.7); RED CELL DISTRIBUTION WIDTH 11.5 % (11.7-14.4)
[~2022-10-28] MED LIST changes: +ASPIRIN CHEW81 MG PO; +COZAAR25 MG PO; +INSULIN REGULAR, HUMAN 100 UNIT/1 ML ONE; +LACTATED RINGER'S 1,000 ML ONE; +LASIX20 MG PO; +LIDOCAINE HCL 2% LOCAL INJ 5 ML SDV VIAL INJ ONE; +LIPITOR20 MG PO; +NEURONTIN100 MG PO; +NOVOLIN N100 UNIT/1 SC; +NOVOLIN R100 UNIT/1 SC; +PHENYLEPHRINE HCL 1% 10 MG/ML VIAL ONE; +PROPOFOL IV EMULSION 10 MG/ML 20 ML VIAL ONE; +PROPOFOL IV EMULSION 10 MG/ML 50 ML VIAL IV ONE; +TRULICITY0.75 MG/0. SC
[2022-10-28 09:14] LABS: ANION GAP 21.3 mmol/L (8-16); CALCIUM 9.5 mg/dL (8.4-10.2); CREATININE, SERUM 1.62 mg/dL (0.72-1.25); POTASSIUM 4.3 mmol/L (3.5-5.1)
[2022-10-28 09:44] LABS: CLARITY,URINE CLEAR (CLEAR); COLOR,URINE YELLOW (YELLOW); KETONES,URINE >=160 (NEGATIVE); LEUKOCYTE ESTERASE ,URINE NEGATIVE (NEGATIVE); NITRITE,URINE NEGATIVE (NEGATIVE); PROTEIN,URINE DIPSTICK NEGATIVE (NEGATIVE); URINE UROBILINOGEN 0.2 mg/dL (0.2 - 1)
[2022-10-28 15:02] VITALS: TEMP 98.8
[2022-10-28 15:30] VITALS: BP 116/77; PULSE 84; RESP 16; O2SAT 99
== END | disposition home or self-care (01) ==
LOC: OR 09:13
PROVIDERS: ATTEND Internal Medicine Gastroenterology
DX: Z12.11 Encounter for screening for malignant neoplasm of colon (principal); K63.5 Polyp of colon; K58.9 Irritable bowel syndrome, unspecified; Z71.3 Dietary counseling and surveillance; I25.118 Atherosclerotic heart disease of native coronary artery with other forms of angina pectoris; E78.5 Hyperlipidemia, unspecified; I11.0 Hypertensive heart disease with heart failure; I50.9 Heart failure, unspecified; Z71.89 Other specified counseling; I25.5 Ischemic cardiomyopathy; E11.69 Type 2 diabetes mellitus with other specified complication; Z71.82 Exercise counseling; Z88.8 Allergy status to other drugs, medicaments and biological substances; Z01.812 Encounter for preprocedural laboratory examination; Z79.4 Long term (current) use of insulin; Z79.85 Long-term (current) use of injectable non-insulin antidiabetic drugs; Z79.82 Long term (current) use of aspirin; Z79.899 Other long term (current) drug therapy; Z68.27 Body mass index [BMI] 27.0-27.9, adult; Z95.5 Presence of coronary angioplasty implant and graft; Z87.891 Personal history of nicotine dependence
CPT/HCPCS: 36415 ×2; 45385; 80048; 81003; 82948; 85025; J2001; J2370; J2704 ×2; J7121; 45378

== ENCOUNTER 2024-06-04 03:00 | Inpatient (IN) | payer SELFPAY ==
[2024-06-04] VITALS (14 sets, daily range): BP systolic 125–144; BP diastolic 84–108; PULSE 92–102; RESP 16–23; TEMP 98.1–98.5; O2SAT 93–98
[~2024-06-04] VITALS: Ht 177.8 cm; Wt 90.7 kg
[2024-06-04] MEDS ORDERED: ACETAMINOPHEN 325 MG TAB PO STA (03:04)
[2024-06-04] MEDS ORDERED: SODIUM CHLORIDE 0.9% 1000ML 1,000 ML IV STA (03:04)
[2024-06-04 03:38] LABS: BASOPHILS # (AUTO) 0.1 (0.0-0.1); EOSINOPHILS # (AUTO) 0.3 (0.0-0.4); EOSINOPHILS % 4.1 % (0.0-6.0); HEMATOCRIT 41.1 % (38.2-49.6); HEMOGLOBIN 13.5 g/dL (14.0-18.0); LYMPHOCYTES # (AUTO) 3.4 (1.0-3.2); LYMPHOCYTES % 40.6 % (18.0-39.1); MEAN CORPUSCULAR HEMOGLOBIN 32.1 pg (28-32); MEAN CORPUSCULAR HGB CONC 32.8 g/dL (31-35); MEAN CORPUSCULAR VOLUME 97.9 fL (81-99); MONOCYTES # (AUTO) 0.7 (0.2-0.8); MONOCYTES % 8.5 % (4.4-11.3); NEUTROPHILS # (AUTO) 3.8 (2.1-6.9); NEUTROPHILS % 45.4 % (38.7-80.0); PLATELET COUNT 201 x10e3/uL (140-360); RED CELL DISTRIBUTION WIDTH 12.3 % (11.7-14.4); WHITE BLOOD COUNT 8.35 x10e3/uL (4.8-10.8)
[2024-06-04 03:53] LABS: ALBUMIN 3.5 g/dL (3.5-5.0); ALBUMIN/GLOBULIN RATIO 0.9 (0.8-2.0); ANION GAP 16.1 mmol/L (8-16); BILIRUBIN,TOTAL 0.8 mg/dL (0.2-1.2); CREATININE, SERUM 1.05 mg/dL (0.72-1.25); TOTAL PROTEIN 7.2 g/dL (6.5-8.1)
[2024-06-04 03:59] LABS: TROPONIN I 0.025 ng/mL (0-0.300)
[2024-06-04 04:00] LABS: POTASSIUM 3.1 mmol/L (3.5-5.1)
[2024-06-04 04:13] LABS: INFLUENZA A AG NEGATIVE (NEGATIVE)
[2024-06-04 04:14] LABS: CORONAVIRUS COVID-19 AG NEGATIVE (NEGATIVE); INFLUENZA B AG NEGATIVE (NEGATIVE)
[2024-06-04] MEDS ORDERED: IOPAMIDOL 370 MG/ML 100 ML INFUS..BTL INJ ONE (04:30)
[2024-06-04] MEDS ORDERED: Morphine 2mg Syringe 2 MG/ML SYR IV PRN (05:15)
[2024-06-04] MEDS ORDERED: ONDANSETRON HCL INJ 2MG/ML 2ML 2 MG/ML VIAL IV PRN (05:15)
[2024-06-04 05:16] LABS: OPIATES SCREEN,URINE NEGATIVE (NEGATIVE); PHENCYCLIDINE SCREEN,URINE NEGATIVE (NEGATIVE)
[2024-06-04 05:17] LABS: AMPHETAMINES SCREEN,URINE NEGATIVE (NEGATIVE); BENZODIAZEPINES SCREEN,URINE NEGATIVE (NEGATIVE); CANNABINOIDS SCREEN,URINE NEGATIVE (NEGATIVE); COCAINE SCREEN,URINE NEGATIVE (NEGATIVE); METHADONE SCREEN, URINE NEGATIVE (NEGATIVE)
[2024-06-04] MEDS ORDERED: DEXTROSE 50% SYRINGE 50 ML IV PRN ×2 (05:45→09:30)
[2024-06-04 06:37] LABS: HIV 1&2 AB SCREEN NON-REACTIVE (NONREACTIVE); HIV- 1 P24 AG SCREEN NON-REACTIVE (NONREACTIVE)
[2024-06-04] MEDS: FUROSEMIDE INJ 10 MG/ML 4 ML VIAL IV ONE (10:09)
[2024-06-04] MEDS: INSULIN REGULAR, HUMAN 100 UNIT/1 ML SQ SCH (10:13)
[2024-06-04] MEDS: CARVEDILOL 3.125 MG TAB PO SCH (18:13)
[2024-06-04] MEDS: ATORVASTATIN 20 MG TAB PO SCH (20:53)
[2024-06-04] MEDS: INSULIN GLARGINE 100 UNITS/ML VIAL SQ SCH (21:03)
[2024-06-05] VITALS (18 sets, daily range): BP systolic 115–139; BP diastolic 82–94; PULSE 85–100; RESP 10–23; TEMP 98–98.5; O2SAT 94–100
[2024-06-05 06:16] LABS: BASOPHILS # (AUTO) 0.1 (0.0-0.1); BASOPHILS % 0.8 % (0.0-1.0); EOSINOPHILS # (AUTO) 0.4 (0.0-0.4); EOSINOPHILS % 4.8 % (0.0-6.0); HEMATOCRIT 39.8 % (38.2-49.6); HEMOGLOBIN 13.1 g/dL (14.0-18.0); LYMPHOCYTES # (AUTO) 1.9 (1.0-3.2); LYMPHOCYTES % 25.9 % (18.0-39.1); MEAN CORPUSCULAR HEMOGLOBIN 31.9 pg (28-32); MEAN CORPUSCULAR HGB CONC 32.9 g/dL (31-35); MEAN CORPUSCULAR VOLUME 96.8 fL (81-99); MONOCYTES # (AUTO) 0.6 (0.2-0.8); MONOCYTES % 8.3 % (4.4-11.3); NEUTROPHILS # (AUTO) 4.5 (2.1-6.9); NEUTROPHILS % 59.9 % (38.7-80.0); PLATELET COUNT 153 x10e3/uL (140-360); RED BLOOD COUNT 4.11 x10e6/uL (4.3-5.7); WHITE BLOOD COUNT 7.44 x10e3/uL (4.8-10.8)
[2024-06-05 06:45] LABS: ALBUMIN 2.9 g/dL (3.5-5.0); ALBUMIN/GLOBULIN RATIO 0.9 (0.8-2.0); ANION GAP 15.9 mmol/L (8-16); BILIRUBIN,TOTAL 0.9 mg/dL (0.2-1.2); CALCIUM 8.3 mg/dL (8.4-10.2); CREATININE, SERUM 1.02 mg/dL (0.72-1.25); POTASSIUM 3.9 mmol/L (3.5-5.1)
[2024-06-05 08:00] LABS: TROPONIN I 0.024 ng/mL (0-0.300)
[2024-06-05] MEDS: SPIRONOLACTONE 25 MG TAB PO SCH (08:32)
[2024-06-05] MEDS: LOSARTAN POTASSIUM 25 MG TAB PO SCH (08:32)
[2024-06-05 16:01] LABS: TROPONIN I 0.013 ng/mL (0-0.300)
[2024-06-05] MEDS ORDERED: PIPERACILLIN/TAZOBACTAM 3.375 GM VIAL ONE (20:48)
[2024-06-06] VITALS (15 sets, daily range): BP systolic 101–139; BP diastolic 67–91; PULSE 78–104; RESP 16–27; TEMP 97.7–98.5; O2SAT 91–100
[2024-06-06 06:50] LABS: BASOPHILS # (AUTO) 0.1 (0.0-0.1); BASOPHILS % 0.6 % (0.0-1.0); EOSINOPHILS # (AUTO) 0.4 (0.0-0.4); EOSINOPHILS % 5.5 % (0.0-6.0); HEMATOCRIT 38.4 % (38.2-49.6); HEMOGLOBIN 13.5 g/dL (14.0-18.0); LYMPHOCYTES # (AUTO) 2.4 (1.0-3.2); LYMPHOCYTES % 30.1 % (18.0-39.1); MEAN CORPUSCULAR HEMOGLOBIN 32.5 pg (28-32); MEAN CORPUSCULAR HGB CONC 35.2 g/dL (31-35); MEAN CORPUSCULAR VOLUME 92.3 fL (81-99); MONOCYTES # (AUTO) 0.7 (0.2-0.8); MONOCYTES % 8.2 % (4.4-11.3); NEUTROPHILS # (AUTO) 4.4 (2.1-6.9); NEUTROPHILS % 55.5 % (38.7-80.0); PLATELET COUNT 192 x10e3/uL (140-360); RED BLOOD COUNT 4.16 x10e6/uL (4.3-5.7); RED CELL DISTRIBUTION WIDTH 12.5 % (11.7-14.4); WHITE BLOOD COUNT 8.01 x10e3/uL (4.8-10.8)
[2024-06-06 07:15] LABS: ANION GAP 12.5 mmol/L (8-16); CALCIUM 8.4 mg/dL (8.4-10.2); CREATININE, SERUM 0.93 mg/dL (0.72-1.25); POTASSIUM 3.5 mmol/L (3.5-5.1)
[2024-06-06 07:32] LABS: TROPONIN I 0.028 ng/mL (0-0.300)
[2024-06-06 10:06] LABS: CHOL/HDL RATIO 4.1 (3.9-4.7)
[2024-06-06] MEDS ORDERED: METOPROLOL TARTRATE INJ 1 MG/ML VIAL IV PRN (13:30)
[2024-06-06] MEDS ORDERED: DOCUSATE SODIUM 100 MG CAP PO PRN (13:30)
[2024-06-06] MEDS ORDERED: ACETAMINOPHEN 325 MG TAB PO PRN (13:30)
[2024-06-06] MEDS: FUROSEMIDE INJ 10 MG/ML 2 ML VIAL IV SCH (16:40)
[2024-06-07] MEDS ORDERED: FUROSEMIDE 20 MG TAB PO PRN (03:15)
[2024-06-07] MEDS ORDERED: CEPHALEXIN500 MG PO (05:24)
[2024-06-07] MEDS ORDERED: BENZONATATE100 MG PO (05:24)
[2024-06-07] MEDS ORDERED: LORATADINE10 MG PO (05:24)
[2024-06-07] MEDS ORDERED: ZITHROMAX500 MG PO (05:24)
[2024-06-07] MEDS ORDERED: TRULICITY0.75 MG/0. SC (05:44)
[2024-06-07] MEDS ORDERED: LASIX20 MG PO (05:44)
[2024-06-07] MEDS ORDERED: LOSARTAN POTASS25 MG PO (05:44)
[2024-06-07] MEDS ORDERED: CARVEDILOL3.125 MG PO (05:44)
[2024-06-07] MEDS ORDERED: ASPIRIN EC81 MG PO (05:44)
[2024-06-07] MEDS ORDERED: LIPITOR20 MG PO (05:44)
[2024-06-07] MEDS ORDERED: SPIRONOLACTONE25 MG PO (05:44)
[2024-06-07 06:41] LABS: BASOPHILS # (AUTO) 0.1 (0.0-0.1); BASOPHILS % 0.7 % (0.0-1.0); EOSINOPHILS # (AUTO) 0.5 (0.0-0.4); EOSINOPHILS % 6.1 % (0.0-6.0); HEMATOCRIT 37.4 % (38.2-49.6); HEMOGLOBIN 12.9 g/dL (14.0-18.0); LYMPHOCYTES # (AUTO) 2.3 (1.0-3.2); LYMPHOCYTES % 30.5 % (18.0-39.1); MEAN CORPUSCULAR HEMOGLOBIN 31.8 pg (28-32); MEAN CORPUSCULAR HGB CONC 34.5 g/dL (31-35); MEAN CORPUSCULAR VOLUME 92.1 fL (81-99); MONOCYTES # (AUTO) 0.6 (0.2-0.8); MONOCYTES % 8.2 % (4.4-11.3); NEUTROPHILS % 54.1 % (38.7-80.0); PLATELET COUNT 185 x10e3/uL (140-360); RED BLOOD COUNT 4.06 x10e6/uL (4.3-5.7); RED CELL DISTRIBUTION WIDTH 12.5 % (11.7-14.4); WHITE BLOOD COUNT 7.41 x10e3/uL (4.8-10.8)
[2024-06-07 07:19] LABS: ANION GAP 14.5 mmol/L (8-16); CALCIUM 8.6 mg/dL (8.4-10.2); CREATININE, SERUM 1.11 mg/dL (0.72-1.25); MAGNESIUM 1.6 MG/DL (1.3-2.1); PHOSPHORUS 4.2 MG/DL (2.3-4.7); POTASSIUM 3.5 mmol/L (3.5-5.1)
[2024-06-07 07:40] VITALS: BP 115/80; PULSE 84; RESP 18; TEMP 98.3; O2SAT 98
[2024-06-07 08:01] VITALS: PULSE 74; RESP 20; O2SAT 97
[2024-06-07 08:57] VITALS: BP 115/80; PULSE 69
[2024-06-07] MEDS: SENNOSIDES 8.6 MG TAB PO SCH (08:57)
[2024-06-07 09:31] VITALS: TEMP 97.7
[2024-06-07] MEDS ORDERED: INFLUENZA VIRUS VAC SPLIT INJ 0.5 ML SYR IM ONE (12:00)
== END 2024-06-07 11:00 | disposition home or self-care (01) | DRG 291 ==
LOC: ER 03:05 → ERHOLD 05:19 → ICU 06:14 → MED/SURG2 06-06 15:05
PROVIDERS: ADMIT Internal Medicine; ATTEND Internal Medicine
DX: I11.0 Hypertensive heart disease with heart failure (principal); I50.23 Acute on chronic systolic (congestive) heart failure; J18.9 Pneumonia, unspecified organism; J96.01 Acute respiratory failure with hypoxia; R64 Cachexia; L97.518 Non-pressure chronic ulcer of other part of right foot with other specified severity; E11.621 Type 2 diabetes mellitus with foot ulcer; E11.649 Type 2 diabetes mellitus with hypoglycemia without coma; I25.10 Atherosclerotic heart disease of native coronary artery without angina pectoris; I77.810 Thoracic aortic ectasia; I08.0 Rheumatic disorders of both mitral and aortic valves; E78.5 Hyperlipidemia, unspecified; R53.81 Other malaise; Z11.52 Encounter for screening for COVID-19; Z68.28 Body mass index [BMI] 28.0-28.9, adult; Z59.71 Insufficient health insurance coverage; Z79.4 Long term (current) use of insulin; Z79.85 Long-term (current) use of injectable non-insulin antidiabetic drugs; Z79.82 Long term (current) use of aspirin; Z95.5 Presence of coronary angioplasty implant and graft; Z88.8 Allergy status to other drugs, medicaments and biological substances; Z91.148 Patient's other noncompliance with medication regimen for other reason; F17.200 Nicotine dependence, unspecified, uncomplicated; Z83.3 Family history of diabetes mellitus
CPT/HCPCS: 36415; 71260; 80048; 80053; 80061; 80307; 82550; 82948; 83036; 83605; 83690; 83735; 83880; 84100; 84484; 85025; 87040; 87086; 87390; 93005; 93306; 94799; 96372; 99252; 99284; G0433; G0435; J1815; J1940; J2543; J7050; Q9967

== ENCOUNTER 2025-01-20 15:27 | Emergency (ER) | payer SELFPAY ==
[~2025-01-20] VITALS: Ht 177.8 cm; Wt 86.2 kg
[~2025-01-20 15:27] MED LIST changes: +ASPIRIN EC81 MG PO; +BENZONATATE100 MG PO; +CARVEDILOL3.125 MG PO; +CEPHALEXIN500 MG PO; +LORATADINE10 MG PO; +LOSARTAN POTASS25 MG PO; +SPIRONOLACTONE25 MG PO; +ZITHROMAX500 MG PO
[2025-01-20] MEDS ORDERED: AMOX TR-K CLV1 EAC2 PO (18:22)
[2025-01-20] MEDS ORDERED: DOXYCYCLINE HY100 MG PO (18:22)
[2025-01-20 18:39] VITALS: PULSE 90; RESP 16; TEMP 98.7; O2SAT 100
== END 2025-01-20 18:41 | disposition home or self-care (01) ==
LOC: ER 16:16
DX: L03.113 Cellulitis of right upper limb (principal); W25.XXXA Contact with sharp glass, initial encounter; Y92.89 Other specified places as the place of occurrence of the external cause; E11.9 Type 2 diabetes mellitus without complications; I50.9 Heart failure, unspecified; I25.10 Atherosclerotic heart disease of native coronary artery without angina pectoris; E78.5 Hyperlipidemia, unspecified; Z95.5 Presence of coronary angioplasty implant and graft
CPT/HCPCS: 99283